=== PATIENT | female | born 1960 | race Caucasian/White ===

== ENCOUNTER → 2016-10-31 | Outpatient (CLI) | payer OTHER | LOC: RAD 16:37 | DX: M54.5 Low back pain (principal); M43.16 Spondylolisthesis, lumbar region; M51.36 Other intervertebral disc degeneration, lumbar region ==

== ENCOUNTER → 2016-11-13 | Outpatient (CLI) | payer OTHER | LOC: RAD 16:09 | DX: M54.5 Low back pain (principal); M54.16 Radiculopathy, lumbar region; M43.16 Spondylolisthesis, lumbar region ==

== ENCOUNTER → 2017-04-03 | Outpatient (CLI) | payer OTHER | LOC: RAD 08:01 | DX: M54.2 Cervicalgia (principal) ==

== ENCOUNTER → 2017-04-18 | Outpatient (CLI) | payer OTHER | LOC: RAD 07:03 | DX: M54.5 Low back pain (principal); M54.16 Radiculopathy, lumbar region ==

== ENCOUNTER → 2017-04-23 | Outpatient (CLI) | payer OTHER | LOC: CARDREHAB 08:46 | DX: R06.83 Snoring (principal); R09.02 Hypoxemia; R53.83 Other fatigue; G47.14 Hypersomnia due to medical condition | CPT/HCPCS: G0399 ==

== ENCOUNTER → 2017-05-16 | Outpatient (CLI) | payer OTHER | LOC: RAD 08:47 | DX: M54.2 Cervicalgia (principal) ==

== ENCOUNTER → 2017-07-31 | Outpatient (CLI) | payer BC ==
[2017-07-31 09:32] LABS: EOS # 0.1 (0.04-0.40); EOS % 1.9 % (1.0-5.0); HEMATOCRIT 41.2 % (37.0-47.0); HEMOGLOBIN 13.7 g/dL (12.5-16.0); LYMPH# 2.2 (1.50-4.00); MEAN CELL VOLUME 89 fl (78-100); MEAN CORPUSCULAR HEMOGLOBIN 30 pg (27-31); MEAN CORPUSCULAR HGB CONC 33 g/dL (33-37); MEAN PLATELET VOLUME 9.2 fl (7.4-10.4); MONO # 0.4 (0.20-0.80); NEU # 2.5 (1.40-6.50); PLATELET COUNT 323 K/mm3 (130-400); RED BLOOD COUNT 4.63 M/mm3 (4.10-5.30); RED CELL DISTRIBUTION WIDTH 12.7 % (11.5-14.5); WHITE BLOOD COUNT 5.2 K/mm3 (4.8-10.8)
[2017-07-31 09:47] LABS: ALBUMIN 4.1 g/dL (3.5-5.0); CALCIUM 9.2 mg/dL (8.4-10.2); POTASSIUM 3.9 mmol/L (3.6-5.0); TOTAL BILIRUBIN 0.5 mg/dL (0.2-1.3); TOTAL PROTEIN 7.7 g/dL (6.3-8.2)
== END ==
LOC: LAB 09:24
PROVIDERS: Internal Medicine
DX: Z00.00 Encounter for general adult medical examination without abnormal findings (principal)

== ENCOUNTER → 2017-10-29 | Outpatient (CLI) | payer BC ==
[2017-10-29 16:31] LABS: ALBUMIN 4.2 g/dL (3.5-5.0); BUN/CREATININE RATIO 22.3 (6.0-26.0); CALCIUM 9.2 mg/dL (8.4-10.2); POTASSIUM 4.1 mmol/L (3.6-5.0); TOTAL BILIRUBIN 0.3 mg/dL (0.2-1.3); TOTAL PROTEIN 7.8 g/dL (6.3-8.2)
[2017-10-29 17:23] LABS: BASO # 0.1 (0.02-0.10); EOS # 0.1 (0.04-0.40); EOS % 1.6 % (1.0-5.0); HEMATOCRIT 41.7 % (37.0-47.0); HEMOGLOBIN 13.9 g/dL (12.5-16.0); LYMPH# 2.6 (1.50-4.00); MEAN CELL VOLUME 88 fl (78-100); MEAN CORPUSCULAR HEMOGLOBIN 29 pg (27-31); MEAN CORPUSCULAR HGB CONC 33 g/dL (33-37); MEAN PLATELET VOLUME 10.3 fl (7.4-10.4); MONO # 0.4 (0.20-0.80); NEU # 3.5 (1.40-6.50); PLATELET COUNT 363 K/mm3 (130-400); RED BLOOD COUNT 4.76 M/mm3 (4.10-5.30); RED CELL DISTRIBUTION WIDTH 12.6 % (11.5-14.5); WHITE BLOOD COUNT 6.7 K/mm3 (4.8-10.8)
== END ==
LOC: LAB 15:50
PROVIDERS: Internal Medicine
DX: M47.816 Spondylosis without myelopathy or radiculopathy, lumbar region (principal); F41.8 Other specified anxiety disorders; J30.1 Allergic rhinitis due to pollen; R20.2 Paresthesia of skin

== ENCOUNTER → 2018-11-04 | Outpatient (CLI) | payer BC | LOC: LAB 06:59 | DX: Z00.00 Encounter for general adult medical examination without abnormal findings (principal) ==

== ENCOUNTER → 2018-12-19 | Outpatient (CLI) | payer BC ==
[~2018-12-19] VITALS: Ht 165.1 cm; Wt 69.4 kg
== END ==
LOC: DIET 14:59
DX: E88.81 Metabolic syndrome and other insulin resistance (principal)

== ENCOUNTER → 2019-01-23 | Outpatient (CLI) | payer BC ==
[~2019-01-23] VITALS: Ht 165.1 cm; Wt 69.6 kg
== END ==
LOC: DIET 15:23
DX: E88.81 Metabolic syndrome and other insulin resistance (principal)

== ENCOUNTER → 2020-04-08 | Outpatient (CLI) | payer OTHER ==
[2020-04-08 12:35] LABS: BASO # 0.1 (0.02-0.10); EOS # 0.1 (0.04-0.40); EOS % 1.4 % (1.0-5.0); HEMATOCRIT 40.7 % (37.0-47.0); HEMOGLOBIN 13.5 g/dL (12.5-16.0); LYMPH# 2.5 (1.50-4.00); MEAN CELL VOLUME 89 fl (78-100); MEAN CORPUSCULAR HEMOGLOBIN 30 pg (27-31); MEAN CORPUSCULAR HGB CONC 33 g/dL (33-37); MEAN PLATELET VOLUME 9.3 fl (7.4-10.4); MONO # 0.4 (0.20-0.80); NEU # 3.6 (1.40-6.50); PLATELET COUNT 327 K/mm3 (130-400); RED BLOOD COUNT 4.57 M/mm3 (4.10-5.30); RED CELL DISTRIBUTION WIDTH 12.9 % (11.5-14.5); WHITE BLOOD COUNT 6.6 K/mm3 (4.8-10.8)
[2020-04-08 12:45] LABS: POTASSIUM 4.2 mmol/L (3.5-5.1)
[2020-04-08 12:46] LABS: ALBUMIN 4.2 g/dL (3.5-5.0)
[2020-04-08 12:47] LABS: CALCIUM 9.4 mg/dL (8.3-10.5)
[2020-04-08 12:48] LABS: TOTAL PROTEIN 7.9 g/dL (6.4-8.3)
[2020-04-08 12:50] LABS: TOTAL BILIRUBIN 0.3 mg/dL (0.2-1.2)
[2020-04-08 13:52] LABS: ERYTHROCYTE SEDIMENTATION RATE 17 mm/hr (0-30)
== END ==
LOC: LAB 12:23
PROVIDERS: Internal Medicine
DX: Z00.00 Encounter for general adult medical examination without abnormal findings (principal)